=== PATIENT | female | born 1970 | race Caucasian/White ===

== ENCOUNTER → 2017-09-29 17:01 | Outpatient (CLI) | payer MEDICARE, MEDICAID | END | disposition home or self-care (01) | LOC: D.MAMMO 11:45 | DX: Z12.31 Encounter for screening mammogram for malignant neoplasm of breast (principal) ==

== ENCOUNTER 2017-10-27 08:00 | Outpatient (CLI) | payer MEDICARE | END 2017-10-27 12:22 | disposition home or self-care (01) | LOC: D.MAMMO 08:00 | DX: R92.8 Other abnormal and inconclusive findings on diagnostic imaging of breast (principal) ==

== ENCOUNTER 2019-09-23 07:18 | Day surgery (SDC) | payer MEDICARE ==
[~2019-09-23] VITALS: Ht 165.1 cm; Wt 118.4 kg
[~2019-09-23 07:18] MED LIST: ADVAIR 250-501 EAC1 INH; BENZTROPINE MESY1 MG; BENZTROPINE MESY1 MG PO; CRESTOR20 MG PO; GLYBURIDE5 M1; OXYBUTYNIN CHLOR5 MG; OXYCONTIN10 MG; VALIUM10 MG PO; VENTOLIN HFA [SP8 GM
[2019-09-23 07:38] LABS: HEMATOCRIT 42.9 % (36.0-48.0); HEMOGLOBIN 13.7 g/dL (12-16); MCH 26.5 pg (26.0-34.0); MCHC 31.9 g/dL (31.0-37.0); MEAN PLATELET VOLUME 9.2 fL (7.4-10.4); RBC 5.17 10x6/uL (4.00-5.40); RDW 16.6 % (11.5-14.5)
[2019-09-23 08:33] VITALS: BP 134/84; Ht 165.1 cm; Wt 118.4 kg
--- NOTE | 2019-09-23 08:52 | NUR ---
POSITIVE FOR SUICIDE SCREENING, ADELA SEGURACAR AUDIO INSTALLER NOTIFIED
[2019-09-23] MEDS ORDERED: HYDROCODON-ACE1 EA10 PO (10:28)
--- NOTE | 2019-09-23 14:27 | NUR ---
1230 PHYSICAL THERAPIST HERE TO INSTRUCT PATIENT ON HOW TO USE WALKER AND WEIGHT BEAR TOLERATED. PHYSICAL THERAPIST CHANGED THE FLEXION SETTINGS FROM 30 DEGREES TO 0 DEGREES WHILE THE LEG IS NUMB FROM THE BLOCK. PT INSTRUCTED TO CHANGE THE SETTING BACK TO 30 DEGREES ONCE SHE HAS FEELING BACK IN HER LEG. PT WAS ABLE TO USE WALKER IN ROOM AND BACK TO BED WITHOUT INCIDENT. 1315 PT HAS NOT HAD EVALUATION WITH BEHAVIORAL HEALTH NURSE SINCE EARLY AM REQUEST. REQUEST RESUBMITTED AFTER PT RETURNED TO ROOM POST OP. PT IS BECOMING IMPATIENT AND DOES NOT WANT TO WAIT FOR THIS EVALUATION. PT STATES THAT SHE SEES A PSYCOLOGIST ON A [employer]UALR BASIS AND THAT SHE WILL KEEP HER NEXT APPOINTMENT WITH HER DR. A SUICIDE PREVENTION RESOURCE SHEET WAS GIVEN TO PT TO USE IF SHE WAS UNABLE TO REACH HER PSYCOLOGIST.
--- NOTE | 2019-09-23 14:42 | NUR ---
1300 IV DC'D. CATHETER TIP INTACT. NO BLEEDING AT SITE. BANDAID APPLIED.
--- NOTE | 2019-09-27 11:11 | OP ---
PATIENT NAME: STEVEN BLACKWELL MEDICAL RECORD: [id number] :70 LOCATION:[facility] ADMISSION DATE: SURGEON: BRITTON YAÑEZ MD DATE OF OPERATION: 09/23/2019 PREOPERATIVE DIAGNOSIS: Anterior cruciate ligament tear of the left knee. POSTOPERATIVE DIAGNOSIS: Anterior cruciate ligament tear of the left knee. PROCEDURE: Arthroscopic anterior cruciate ligament reconstruction allograft. SURGEON: Britton Yañez MD HOSPITAL CLEANING SPECIALIST: RITA Stern INTRAOPERATIVE COMPLICATIONS: None. SUMMARY OF PATHOLOGIC FINDINGS: The patient did not have substantial meniscal pathology or substantial chondromalacia. The patient quite simply had a tear of the anterior cruciate ligament off the anterior tibial footprint. OPERATIVE SUMMARY IN DETAIL: After obtaining the appropriate preoperative orthopedic surgery consent as well as anesthetic consultation, evaluation and clearance, the patient was brought to the operating room and placed on the operating table in a supine position. After adequate general laryngeal mask airway was administered, tourniquet was placed on the proximal aspect of left lower extremity. Left lower extremity was then prepped and draped in routine sterile fashion. The leg was elevated and exsanguinated. Tourniquet was inflated to 350 mmHg. At this time, the appropriate timeout was taken and agreed upon by all given the patient's unique identifiers. Routine inferolateral portal was established followed by superomedial portal and inferomedial portal. Diagnostic arthroscopy did reveal the above findings. A clean and intact medial meniscus and clean and intact lateral meniscus with a tear of the ACL. The residual ACL stump was debrided. Notchplasty was performed, albeit minimal. This female did have a very tight notch. Having completed the notchplasty, arthroscopic guidance was utilized to create the tibial tunnel. This was then followed by placing the guide pin for the femoral tunnel in the anatomic appropriate position. The guide pin was then placed through the notch and through the lateral cortex out the skin and the femur. Low profile 11-mm reamer was used to create the femoral tunnel. FiberWire was then pulled through the tunnel, which was used to then pull the allograft size 10-mm through the tibial and femoral tunnel to seat the allograft. The TightRope button was then deployed and seating the femoral bone into its socket. The knee was ranged several times, holding tension on the distal portion of the graft. It was ultimately then secured distally with a transtibial post from [employer]. Having completed this, the wound was irrigated and closed in usual fashion by RITA Stern. Sterile dressings were applied. Tourniquet was deflated and then compass hinged knee brace was placed across the knee. Having completed this, the patient was awakened and taken to recovery room in stable condition. All final needle and sponge counts were correct. TRANSINT:[id number] Voice Confirmation ID: [id number] DOCUMENT ID: [id number] OPERATIVE REPORT [id number] STEVEN BLACKWELL MD, BRITTON MARQUEZ at 1111 CC: [id number] DICTATION DATE: 09/23/19 1043 EGG PRODUCER: 09/23/19 1719 [facility] 09/23/19 [id number] [place] [address]
== END 2019-09-23 13:37 | disposition home or self-care (01) ==
LOC: D.PAN 07:18 → D.OPS 11:15 → D.PAN 13:37
PROVIDERS: Anesthesiology; ATTEND Orthopaedic Surgery
DX: S83.512A Sprain of anterior cruciate ligament of left knee, initial encounter (principal); X58.XXXA Exposure to other specified factors, initial encounter; J45.909 Unspecified asthma, uncomplicated; Z72.0 Tobacco use; M25.562 Pain in left knee